=== PATIENT | female | born 1945 | race Caucasian/White ===

== ENCOUNTER 2016-09-23 20:27 | Inpatient (IN) | payer MEDICARE, OTHER ==
[~2016-09-23] VITALS: Ht 162.6 cm; Wt 84.5 kg
[~2016-09-23 20:27] MED LIST changes: -ALPR1TAB2 PO; -DULO20CA45 PO
[2016-09-23] MEDS ORDERED: DULO20CA45 PO (21:04)
[2016-09-23] MEDS ORDERED: AMLO10TA2 PO (21:04)
[2016-09-23] MEDS ORDERED: ALPR1TAB2 PO (21:04)
[2016-09-23] MEDS ORDERED: OXYcodone IR 5MG TABLET ONE (21:57)
[2016-09-23] MEDS ORDERED: OXYcodone IR 5MG TABLET PO ONE (22:00)
[2016-09-23] MEDS ORDERED: METOPROLOL TARTRATE 50 MG TABLET PO ONE (23:30)
[2016-09-23] MEDS ORDERED: SODIUM CHLORIDE FLUSH 10ML SYR IVF ONE (23:30)
[2016-09-23 23:35] LABS: HEMOGLOBIN 13.5 g/dL (11.7-16.4)
[2016-09-23 23:48] LABS: ASPARTATE AMINO TRANSFERASE 17 U/L (15-37); BLOOD UREA NITROGEN 23 mg/dL (7-18)
[2016-09-24] MEDS ORDERED: TRAZODONE 50MG TABLET PO ONE (00:30)
[2016-09-24] MEDS ORDERED: GABAPENTIN 300 MG CAPSULE PO ONE (00:30)
[2016-09-24] MEDS ORDERED: SIMVASTATIN 20 MG TABLET PO ONE (00:30)
[2016-09-24] MEDS ORDERED: METOPROLOL TARTRATE 50 MG TABLET ONE (00:46)
[2016-09-24] MEDS: SODIUM CHLORIDE 0.9% 1,000 ML IV SCH ×3 (01:36→21:47)
[2016-09-24 01:38] VITALS: BP 167/79
[2016-09-24] MEDS ORDERED: ONDANSETRON ODT 4 MG PO PRN (02:00)
[2016-09-24] MEDS ORDERED: BISACODYL 10 MG SUPP PR PRN (02:00)
[2016-09-24] MEDS: HEPARIN 5,000 UNITS/ML, 1ML SQ SCH ×3 (03:22→18:00)
[2016-09-24] MEDS: CHOLECALCIFEROL 1,000 UNIT TABLET PO SCH (04:05)
[2016-09-24] MEDS: ASPIRIN 81 MG TABLET EC PO SCH (04:05)
[2016-09-24] MEDS: OXYcodone IR 5MG TABLET PO PRN ×3 (04:06→21:52)
[2016-09-24 05:46] LABS: BLOOD UREA NITROGEN 23 mg/dL (7-18)
[2016-09-24 06:47] VITALS: BP 150/68
[2016-09-24] MEDS: INSULIN REGULAR 100 UNITS/ML, 3ML VIAL SQ-INSULIN SCH ×4 (07:47→21:00)
[2016-09-24] MEDS: FAMOTIDINE 20 MG TABLET PO SCH ×2 (10:01→21:36)
[2016-09-24] MEDS: DULOXETINE 20 MG CAPSULE.DR PO SCH (10:01)
[2016-09-24 10:02] VITALS: BP 161/96
[2016-09-24] MEDS: AMLODIPINE 5 MG TABLET PO SCH (10:02)
[2016-09-24] MEDS: DONEPEZIL 10 MG TABLET PO SCH (10:02)
[2016-09-24] MEDS: BENAZEPRIL 20 MG TABLET PO SCH (10:03)
[2016-09-24] MEDS ORDERED: CEFAZOLIN 1,000 MG ONE (10:38)
[2016-09-24] MEDS ORDERED: PROPOFOL 10 MG/ML, 20ML ONE (10:38)
[2016-09-24] MEDS ORDERED: GLYCOPYRROLATE 0.2MG/1ML ONE (10:38)
[2016-09-24] MEDS ORDERED: ONDANSETRON 2MG/ML, 2ML ONE (10:38)
[2016-09-24] MEDS ORDERED: LABETALOL 5MG/ML, 20ML IV PRN (17:30)
[2016-09-24] MEDS ORDERED: hydrALAzine 20 MG/ML, 1ML IV PRN (17:30)
[2016-09-24] MEDS ORDERED: ONDANSETRON 2MG/ML, 2ML IVPush PRN (17:30)
[2016-09-24] MEDS ORDERED: OXYcodone 5 MG/5 ML ORAL.SOL UDC PO PRN (17:30)
[2016-09-24] MEDS ORDERED: FENTANYL PF 100 MCG/2ML ONE ×2 (17:33→17:54)
[2016-09-24] MEDS: FENTANYL PF 100 MCG/2ML IV PRN ×4 (17:35→18:10)
[2016-09-24] MEDS: LABETALOL 5MG/ML, 20ML IV PRN ×2 (17:48→17:53)
[2016-09-24] MEDS ORDERED: hydrALAzine 20 MG/ML, 1ML ONE (17:52)
[2016-09-24] MEDS ORDERED: HYDROmorphone 2 MG/ML, 1ML ONE (17:54)
[2016-09-24] MEDS: HYDROmorphone 1 MG/ML, 1ML IV PRN ×4 (17:57→18:20)
[2016-09-24] MEDS ORDERED: MIDAZOLAM 1 MG/ML, 2ML ONE (18:34)
[2016-09-24] MEDS ORDERED: HALOPERIDOL 5 MG/ML ONE (18:45)
[2016-09-24] MEDS ORDERED: HALOPERIDOL 5 MG/ML IV ONE (19:00)
[2016-09-24] MEDS ORDERED: MIDAZOLAM 1 MG/ML, 2ML IV PRN (19:00)
[2016-09-24 19:05] VITALS: BP 102/53
[2016-09-24] MEDS: GABAPENTIN 300 MG CAPSULE PO SCH (21:36)
[2016-09-24] MEDS: SIMVASTATIN 20 MG TABLET PO SCH (21:37)
[2016-09-24] MEDS: METOPROLOL SUCCINATE 25 MG TAB.ER.24H PO SCH (21:37)
[2016-09-24] MEDS: TRAZODONE 50MG TABLET PO PRN (21:52)
[2016-09-24 23:26] VITALS: BP 182/101
[2016-09-25] MEDS: CEFAZOLIN PMX 2GM/100ML 100 ML IV SCH ×2 (00:58→09:00)
[2016-09-25] MEDS: HEPARIN 5,000 UNITS/ML, 1ML SQ SCH ×3 (00:59→17:56)
[2016-09-25] MEDS: OXYcodone IR 5MG TABLET PO PRN ×4 (03:08→21:05)
[2016-09-25 03:24] VITALS: BP 156/66
[2016-09-25] MEDS: ASPIRIN 81 MG TABLET EC PO SCH (06:38)
[2016-09-25] MEDS: CHOLECALCIFEROL 1,000 UNIT TABLET PO SCH (06:38)
[2016-09-25] MEDS: INSULIN REGULAR 100 UNITS/ML, 3ML VIAL SQ-INSULIN SCH ×4 (06:39→21:06)
[2016-09-25 08:05] VITALS: BP 159/78
[2016-09-25] MEDS: DULOXETINE 20 MG CAPSULE.DR PO SCH (09:42)
[2016-09-25] MEDS: DONEPEZIL 10 MG TABLET PO SCH (09:43)
[2016-09-25] MEDS: FAMOTIDINE 20 MG TABLET PO SCH ×2 (09:43→21:06)
[2016-09-25] MEDS: AMLODIPINE 5 MG TABLET PO SCH (09:44)
[2016-09-25] MEDS: BENAZEPRIL 20 MG TABLET PO SCH (09:44)
[2016-09-25 09:57] LABS: ASPARTATE AMINO TRANSFERASE 23 U/L (15-37); BLOOD UREA NITROGEN 24 mg/dL (7-18)
[2016-09-25] MEDS ORDERED: CEFAZOLIN PMX 2GM/50ML 50 ML IV SCH (10:00)
[2016-09-25 10:08] LABS: HEMOGLOBIN 11.4 g/dL (11.7-16.4)
[2016-09-25] MEDS: SODIUM CHLORIDE 0.9% 1,000 ML IV SCH ×2 (10:15→22:50)
[2016-09-25] MEDS: NYSTATIN TOPICAL POWDER 15GM TP SCH ×2 (10:36→21:06)
[2016-09-25 13:05] VITALS: BP 133/70
[2016-09-25 20:45] VITALS: BP 139/64
[2016-09-25] MEDS: SIMVASTATIN 20 MG TABLET PO SCH (21:06)
[2016-09-25] MEDS: GABAPENTIN 300 MG CAPSULE PO SCH (21:06)
[2016-09-25] MEDS: METOPROLOL SUCCINATE 25 MG TAB.ER.24H PO SCH (21:06)
[2016-09-26] MEDS: HEPARIN 5,000 UNITS/ML, 1ML SQ SCH ×4 (02:41→20:35)
[2016-09-26] MEDS: OXYcodone IR 5MG TABLET PO PRN ×2 (03:58→12:38)
[2016-09-26 04:43] VITALS: BP 144/75
[2016-09-26] MEDS: SODIUM CHLORIDE 0.9% 1,000 ML IV SCH ×2 (05:50→12:21)
[2016-09-26] MEDS: ASPIRIN 81 MG TABLET EC PO SCH (05:51)
[2016-09-26] MEDS: CHOLECALCIFEROL 1,000 UNIT TABLET PO SCH (05:51)
[2016-09-26 06:15] LABS: HEMOGLOBIN 10.3 g/dL (11.7-16.4)
[2016-09-26 06:34] LABS: BLOOD UREA NITROGEN 20 mg/dL (7-18)
[2016-09-26] MEDS: INSULIN REGULAR 100 UNITS/ML, 3ML VIAL SQ-INSULIN SCH ×2 (07:00→11:00)
[2016-09-26 07:32] VITALS: BP 170/79
[2016-09-26] MEDS: DONEPEZIL 10 MG TABLET PO SCH (07:35)
[2016-09-26] MEDS: NYSTATIN TOPICAL POWDER 15GM TP SCH ×2 (07:35→21:05)
[2016-09-26] MEDS: DULOXETINE 20 MG CAPSULE.DR PO SCH (07:35)
[2016-09-26] MEDS: FAMOTIDINE 20 MG TABLET PO SCH ×2 (07:35→20:35)
[2016-09-26] MEDS: AMLODIPINE 5 MG TABLET PO SCH (07:35)
[2016-09-26] MEDS: POLYETHYLENE GLYCOL 17 GM PACKET PO PRN (12:38)
[2016-09-26 14:47] VITALS: BP 134/73
[2016-09-26] MEDS ORDERED: PNEUMOCOCCAL 23 VACCINE IM-VACC ONE (18:30)
[2016-09-26] MEDS ORDERED: FLU VACC QS2016-17 (36MOS+)UP/PF 0.5 ML IM-VACC ONE (18:30)
[2016-09-26 19:27] VITALS: BP 162/73
[2016-09-26] MEDS: GABAPENTIN 300 MG CAPSULE PO SCH (20:35)
[2016-09-26] MEDS: METOPROLOL SUCCINATE 25 MG TAB.ER.24H PO SCH (20:36)
[2016-09-26] MEDS: SIMVASTATIN 20 MG TABLET PO SCH (20:36)
[2016-09-26] MEDS: DOCUSATE 100 MG CAPSULE PO PRN (20:40)
[2016-09-26 22:20] VITALS: BP 168/69
[2016-09-26] MEDS: TRAZODONE 50MG TABLET PO PRN (23:19)
[2016-09-27] VITALS (9 sets, daily range): BP systolic 157–184; BP diastolic 75–89
[2016-09-27] MEDS: OXYcodone IR 5MG TABLET PO PRN ×4 (01:19→20:23)
[2016-09-27] MEDS: HEPARIN 5,000 UNITS/ML, 1ML SQ SCH ×3 (04:38→20:23)
[2016-09-27 05:35] LABS: BLOOD UREA NITROGEN 20 mg/dL (7-18)
[2016-09-27 06:03] LABS: HEMOGLOBIN 11.4 g/dL (11.7-16.4)
[2016-09-27] MEDS: CHOLECALCIFEROL 1,000 UNIT TABLET PO SCH (06:17)
[2016-09-27] MEDS: ASPIRIN 81 MG TABLET EC PO SCH (06:17)
[2016-09-27] MEDS: POLYETHYLENE GLYCOL 17 GM PACKET PO PRN (06:18)
[2016-09-27] MEDS: FAMOTIDINE 20 MG TABLET PO SCH ×2 (09:09→20:23)
[2016-09-27] MEDS: AMLODIPINE 5 MG TABLET PO SCH (09:09)
[2016-09-27] MEDS: NYSTATIN TOPICAL POWDER 15GM TP SCH ×2 (09:09→20:23)
[2016-09-27] MEDS: DONEPEZIL 10 MG TABLET PO SCH (09:09)
[2016-09-27] MEDS: DULOXETINE 20 MG CAPSULE.DR PO SCH (09:09)
[2016-09-27] MEDS: DOCUSATE 100 MG CAPSULE PO PRN (09:12)
[2016-09-27] MEDS: MAGNESIUM HYDROXIDE 8%, 30ML UDC PO SCH (11:00)
[2016-09-27] MEDS ORDERED: NYST60PO TP (12:51)
[2016-09-27] MEDS ORDERED: ENOX40SY4 SQ (12:51)
[2016-09-27] MEDS: LABETALOL 5MG/ML, 20ML IV PRN (18:48)
[2016-09-27] MEDS: GABAPENTIN 300 MG CAPSULE PO SCH (20:23)
[2016-09-27] MEDS: METOPROLOL SUCCINATE 25 MG TAB.ER.24H PO SCH (20:24)
[2016-09-27] MEDS: SIMVASTATIN 20 MG TABLET PO SCH (20:24)
[2016-09-28] VITALS (9 sets, daily range): BP systolic 150–185; BP diastolic 74–99
[2016-09-28] MEDS: LABETALOL 5MG/ML, 20ML IV PRN ×3 (02:27→15:28)
[2016-09-28] MEDS: OXYcodone IR 5MG TABLET PO PRN ×5 (02:31→20:59)
[2016-09-28] MEDS: HEPARIN 5,000 UNITS/ML, 1ML SQ SCH ×3 (04:35→20:58)
[2016-09-28] MEDS: ASPIRIN 81 MG TABLET EC PO SCH (06:15)
[2016-09-28] MEDS: CHOLECALCIFEROL 1,000 UNIT TABLET PO SCH (06:15)
[2016-09-28] MEDS: DONEPEZIL 10 MG TABLET PO SCH (08:29)
[2016-09-28] MEDS: DULOXETINE 20 MG CAPSULE.DR PO SCH (08:30)
[2016-09-28] MEDS: MAGNESIUM HYDROXIDE 8%, 30ML UDC PO SCH (08:30)
[2016-09-28] MEDS: AMLODIPINE 5 MG TABLET PO SCH ×3 (08:30→20:59)
[2016-09-28] MEDS: NYSTATIN TOPICAL POWDER 15GM TP SCH ×2 (08:30→20:58)
[2016-09-28] MEDS: FAMOTIDINE 20 MG TABLET PO SCH ×2 (09:00→22:11)
[2016-09-28 09:24] LABS: HEMOGLOBIN 11.2 g/dL (11.7-16.4)
[2016-09-28 09:32] LABS: ASPARTATE AMINO TRANSFERASE 26 U/L (15-37); BLOOD UREA NITROGEN 24 mg/dL (7-18)
[2016-09-28] MEDS: SODIUM CHLORIDE 0.9% 1,000 ML IV SCH ×2 (15:27→23:57)
[2016-09-28] MEDS: GABAPENTIN 300 MG CAPSULE PO SCH (20:59)
[2016-09-28] MEDS: SIMVASTATIN 20 MG TABLET PO SCH (20:59)
[2016-09-29] VITALS (10 sets, daily range): BP systolic 148–183; BP diastolic 70–100
[2016-09-29] MEDS: OXYcodone IR 5MG TABLET PO PRN ×6 (02:00→22:41)
[2016-09-29] MEDS: LABETALOL 5MG/ML, 20ML IV PRN ×2 (02:07→20:20)
[2016-09-29] MEDS: HEPARIN 5,000 UNITS/ML, 1ML SQ SCH ×3 (04:15→20:11)
[2016-09-29 05:51] LABS: HEMOGLOBIN 11.4 g/dL (11.7-16.4)
[2016-09-29 05:56] LABS: BLOOD UREA NITROGEN 21 mg/dL (7-18)
[2016-09-29] MEDS ORDERED: METOPROLOL SUCCINATE 50 MG TAB.ER.24H PO SCH (06:00)
[2016-09-29] MEDS: CHOLECALCIFEROL 1,000 UNIT TABLET PO SCH (06:09)
[2016-09-29] MEDS: ASPIRIN 81 MG TABLET EC PO SCH (06:09)
[2016-09-29] MEDS: SODIUM CHLORIDE 0.9% 1,000 ML IV SCH ×2 (07:00→15:00)
[2016-09-29] MEDS: DONEPEZIL 10 MG TABLET PO SCH (08:19)
[2016-09-29] MEDS: DULOXETINE 20 MG CAPSULE.DR PO SCH (08:19)
[2016-09-29] MEDS: FAMOTIDINE 20 MG TABLET PO SCH ×2 (08:19→20:12)
[2016-09-29] MEDS: AMLODIPINE 5 MG TABLET PO SCH ×2 (08:19→20:12)
[2016-09-29] MEDS: MAGNESIUM HYDROXIDE 8%, 30ML UDC PO SCH (08:19)
[2016-09-29] MEDS: NYSTATIN TOPICAL POWDER 15GM TP SCH ×2 (08:20→21:36)
[2016-09-29] MEDS ORDERED: POTASSIUM CHLORIDE 20 MEQ TAB.ER.PRT PO ONE (10:30)
[2016-09-29] MEDS: METOPROLOL SUCCINATE 50 MG TAB.ER.24H PO SCH (10:48)
[2016-09-29] MEDS: GABAPENTIN 300 MG CAPSULE PO SCH ×2 (10:48→20:12)
[2016-09-29] MEDS: LISINOPRIL 10 MG TABLET PO SCH (13:42)
[2016-09-29] MEDS ORDERED: DO NOT GIVE MC ONE (14:30)
[2016-09-29] MEDS: SIMVASTATIN 20 MG TABLET PO SCH (20:11)
[2016-09-29] MEDS: QUETIAPINE 25MG TABLET PO SCH (21:35)
[2016-09-30] MEDS: OXYcodone IR 5MG TABLET PO PRN ×4 (02:39→14:44)
[2016-09-30 03:12] VITALS: BP 146/73
[2016-09-30 05:16] LABS: HEMOGLOBIN 11.6 g/dL (11.7-16.4)
[2016-09-30] MEDS: ASPIRIN 81 MG TABLET EC PO SCH (05:16)
[2016-09-30] MEDS: HEPARIN 5,000 UNITS/ML, 1ML SQ SCH ×2 (05:16→12:31)
[2016-09-30 05:23] LABS: BLOOD UREA NITROGEN 16 mg/dL (7-18)
[2016-09-30] MEDS: CHOLECALCIFEROL 1,000 UNIT TABLET PO SCH (06:38)
[2016-09-30 08:20] VITALS: BP 174/69
[2016-09-30] MEDS: DONEPEZIL 10 MG TABLET PO SCH (08:43)
[2016-09-30] MEDS: QUETIAPINE 25MG TABLET PO SCH (08:44)
[2016-09-30] MEDS: GABAPENTIN 300 MG CAPSULE PO SCH (08:44)
[2016-09-30] MEDS: MAGNESIUM HYDROXIDE 8%, 30ML UDC PO SCH (08:44)
[2016-09-30] MEDS: AMLODIPINE 5 MG TABLET PO SCH (08:44)
[2016-09-30] MEDS: FAMOTIDINE 20 MG TABLET PO SCH (08:45)
[2016-09-30] MEDS: DULOXETINE 20 MG CAPSULE.DR PO SCH (08:45)
[2016-09-30] MEDS: NYSTATIN TOPICAL POWDER 15GM TP SCH (08:45)
[2016-09-30] MEDS: METOPROLOL SUCCINATE 50 MG TAB.ER.24H PO SCH (08:45)
[2016-09-30] MEDS: LISINOPRIL 10 MG TABLET PO SCH (08:45)
[2016-09-30 11:08] VITALS: BP 158/77
[2016-09-30 12:45] VITALS: BP 148/75
[2016-09-30] MEDS ORDERED: AMLO5TAB2 PO (13:23)
[2016-09-30] MEDS ORDERED: LISI-167 PO ×2 (13:23→13:33)
[2016-09-30] MEDS ORDERED: ALPR0.25 PO (13:25)
[2016-09-30 14:24] VITALS: BP 179/89
[2016-09-30] MEDS: LABETALOL 5MG/ML, 20ML IV PRN (14:30)
[2016-09-30 14:44] VITALS: BP 159/80
== END 2016-09-30 15:00 | DRG 480 ==
LOC: ED 23:36 → EDIP 09-24 00:16 → 4NOR 09-24 01:08
PROVIDERS: ADMIT Internal Medicine; ATTEND Internal Medicine
PROC: 0QS704Z Reposition Left Upper Femur with Internal Fixation Device, Open Approach (ICD-10-PCS; principal; 2016-09-25)
DX: S72.142A Displaced intertrochanteric fracture of left femur, initial encounter for closed fracture (principal); N17.0 Acute kidney failure with tubular necrosis; I50.32 Chronic diastolic (congestive) heart failure; E87.1 Hypo-osmolality and hyponatremia; E44.1 Mild protein-calorie malnutrition; F05 Delirium due to known physiological condition; F03.90 Unspecified dementia, unspecified severity, without behavioral disturbance, psychotic disturbance, mood disturbance, and anxiety; E78.5 Hyperlipidemia, unspecified; I25.10 Atherosclerotic heart disease of native coronary artery without angina pectoris; M54.9 Dorsalgia, unspecified; G89.29 Other chronic pain; I11.0 Hypertensive heart disease with heart failure; Z96.651 Presence of right artificial knee joint; G62.9 Polyneuropathy, unspecified; E11.65 Type 2 diabetes mellitus with hyperglycemia; Z79.899 Other long term (current) drug therapy; Z86.73 Personal history of transient ischemic attack (TIA), and cerebral infarction without residual deficits; Z95.1 Presence of aortocoronary bypass graft; Z95.5 Presence of coronary angioplasty implant and graft; Z90.710 Acquired absence of both cervix and uterus; Z90.49 Acquired absence of other specified parts of digestive tract; Z68.32 Body mass index [BMI] 32.0-32.9, adult; Z88.0 Allergy status to penicillin
CPT/HCPCS: 36415; 71010; 76000; 80048; 80053; 80173; 82040; 82140; 82607; 82746; 82962; 83735; 84439; 84443; 85025; 85651; 86140; 90686; 90732; 99285; C1713; J0690; J1170; J1644; J2250; J2405; J2704; J3010; J3490; C1769; J0360; J1630; J7030

== ENCOUNTER → 2016-09-23 | Outpatient (CLI) | payer MEDICARE, OTHER ==
[~2016-09-23] MED LIST: ALPR0.25 PO; ALPR1TAB2 PO; AMLO10TA2 PO; AMLO5TAB2 PO; ASPI-496 PO; ASPI-621 PO; BENA1TAB10 PO; BENA20TA2 PO; CHOL20002 PO; CLON-364 PO; CLOP75TA PO; DOCU-30 PO; DONE10TA7 PO; DULO20CA45 PO; FAMO-79 PO; FLUO20TA25 PO; GABA300C10 PO; GABA600T2 PO; LUBI24CA5 PO; MAGN100T6 PO; MELA3TAB15 PO; METF500T4 PO; METF850T2 PO; METO25TA2 PO; ONDA4TAB13 SL; ONDANSETRON PO; OXYC15TA PO; OXYC1TAB9 PO; POLY17PO5 PO; PRAS10TA4 PO; RANI150C PO; SENN1TAB9 PO; SIMV20TA3 PO; TICA90TA PO; TOLT4CAP PO; TRAZ50TA18 PO; VENL37.511 PO; VITAMIN D3 PO; ZEGERID PO; ZINC50TA28 PO
== END | disposition home or self-care (01) ==
LOC: RAD 08:51
PROVIDERS: ATTEND Nurse Practitioner
DX: M25.552 Pain in left hip (principal); M54.5 Low back pain

== ENCOUNTER 2017-08-22 00:43 | Inpatient (IN) | payer MEDICARE, OTHER ==
[~2017-08-22] VITALS: Ht 165.1 cm; Wt 86.0 kg
[~2017-08-22 00:43] MED LIST changes: +ALPR1TAB2 PO; +DOCU-131 PO; -DOCU-30 PO; +DULO20CA45 PO; +ENOX40SY4 SQ; +LISI-167 PO; -LUBI24CA5 PO; +LUBI24CA7 PO; +NYST60PO TP
[2017-08-22] MEDS ORDERED: SODIUM CHLORIDE FLUSH 10ML SYR IVF ONE (01:00)
[2017-08-22] MEDS ORDERED: NITROGLYCERIN OINT 2%, 1GM TP ONE ×2 (01:00→01:14)
[2017-08-22 01:09] LABS: BASOPHILS # (AUTO) 0.04 x10^3/uL (0-0.1); BASOPHILS % (AUTO) 1 % (0-1); EOSINOPHILS # (AUTO) 0.15 x10^3/uL (0-0.4); EOSINOPHILS % (AUTO) 2 % (1-7); LYMPHOCYTES # (AUTO) 1.63 x10^3/uL (1-3.4); LYMPHOCYTES % (AUTO) 22 % (22-44); MD NO; MEAN CORPUSCULAR HEMOGLOBIN 31.3 pg (27.0-34.8); MEAN CORPUSCULAR HGB CONC 33.2 g/dL (32.4-35.8); MEAN PLATELET VOLUME 8.2 fL (7.4-10.4); MONOCYTES # (AUTO) 0.48 x10^3/uL (0.2-0.8); MONOCYTES % (AUTO) 7 % (2-9); NEUTROPHILS # (AUTO) 5.07 x10^3/uL (1.8-6.8); NEUTROPHILS % (AUTO) 69 % (42-75); PLATELET COUNT 187 x10^3/uL (130-400); RED BLOOD COUNT 4.26 x10^6/uL (3.82-5.3); RED CELL DISTRIBUTION WIDTH 13.4 % (9.6-15.2)
[2017-08-22 01:16] LABS: INTERNATIONAL NORMALIZED RATIO 1.04 (0.93-1.1); PROTHROMBIN TIME 10.7 Seconds (9.6-11.5)
[2017-08-22 01:18] LABS: ALBUMIN 3.7 g/dL (3.4-5.0); ANION GAP 10 mmol/L (5-15); CALCIUM 8.8 mg/dL (8.5-10.1); CHLORIDE 108 mmol/L (98-107); CREATININE 1.45 mg/dL (0.55-1.02)
[2017-08-22 01:22] LABS: TROPONIN I < 0.015 ng/mL (0.000-0.045)
[2017-08-22] MEDS ORDERED: D5%-0.45% NACL 1,000 ML IV ONE (01:50)
[2017-08-22] MEDS ORDERED: OXYcodone/APAP 5/325MG TABLET PO ONE (02:00)
[2017-08-22] MEDS ORDERED: SODIUM CHLORIDE FLUSH 10ML SYR IVF PRN (02:00)
[2017-08-22] MEDS ORDERED: OXYC10TA6 PO (02:02)
[2017-08-22] MEDS ORDERED: OXYcodone/APAP 5/325MG TABLET ONE (02:10)
[2017-08-22 03:10] VITALS: BP 173/81
[2017-08-22] MEDS ORDERED: SODIUM CHLORIDE 0.9% 1,000 ML IV SCH (05:52)
[2017-08-22] MEDS ORDERED: ONDANSETRON 2MG/ML, 2ML IVPush PRN (06:00)
[2017-08-22] MEDS ORDERED: hydrALAzine 20 MG/ML, 1ML IV PRN (06:00)
[2017-08-22] MEDS ORDERED: morphine SULFATE 10 MG/ML, 1ML IVPush PRN (06:00)
[2017-08-22] MEDS ORDERED: ASPIRIN 81 MG TABLET EC PO SCH (06:00)
[2017-08-22] MEDS ORDERED: ACETAMINOPHEN 325 MG TABLET PO PRN (06:00)
[2017-08-22] MEDS ORDERED: ENALAPRILAT 1.25 MG/ML, 2ML IV PRN ×2 (06:00→12:00)
[2017-08-22] MEDS ORDERED: POLYETHYLENE GLYCOL 17 GM PACKET PO PRN (06:00)
[2017-08-22] MEDS ORDERED: DOCUSATE 100 MG CAPSULE PO PRN (06:00)
[2017-08-22] MEDS: ENOXAPARIN 40 MG/0.4 ML SQ SCH (06:21)
[2017-08-22] MEDS ORDERED: ASPIRIN MC SCH (06:30)
[2017-08-22 07:34] LABS: CHOLESTEROL, TOTAL 210 mg/dL (140-239)
[2017-08-22 07:37] LABS: CHOL/HDL RATIO 5.7; HDL CHOL % 18 % (28-40); HDL CHOLESTEROL (DIRECT) 37 mg/dL (40-60); LDL CHOLESTEROL,CALCULATED 141 mg/dL (54-169); LDL/HDL RATIO 3.8 (0.5-3.0); TRIGLYCERIDES 162 mg/dL (50-200); TROPONIN I < 0.015 ng/mL (0.000-0.045); VLDL CHOLESTEROL 32 mg/dL (0-25)
[2017-08-22] MEDS: FAMOTIDINE 20 MG TABLET PO SCH ×2 (08:14→21:00)
[2017-08-22] MEDS: DULOXETINE 20 MG CAPSULE.DR PO SCH (08:14)
[2017-08-22] MEDS: OXYcodone IR 5MG TABLET PO PRN ×2 (08:15→16:16)
[2017-08-22] MEDS: PRASUGREL 10 MG TABLET PO SCH (08:15)
[2017-08-22] MEDS: DONEPEZIL 10 MG TABLET PO SCH (08:15)
[2017-08-22] MEDS: ASPIRIN 325 MG TABLET EC PO SCH (08:15)
[2017-08-22] MEDS: SENNA/DOCUSATE TABLET PO SCH (08:18)
[2017-08-22] MEDS: INSULIN LISPRO 100 UNITS/ML, PEN SQ-INSULIN SCH ×4 (08:18→21:00)
[2017-08-22] MEDS ORDERED: AMLODIPINE 5 MG TABLET PO SCH (09:00)
[2017-08-22] MEDS ORDERED: REGADENOSON 0.4 MG/5 ML SYRINGE ONE (11:25)
[2017-08-22 11:48] VITALS: BP 177/80
[2017-08-22] MEDS: HYDROcodone/APAP 5/325 TABLET PO PRN (11:53)
[2017-08-22 14:20] VITALS: BP 185/93
[2017-08-22 19:09] VITALS: BP 142/77
[2017-08-22] MEDS ORDERED: SIMVASTATIN 20 MG TABLET PO SCH (21:00)
[2017-08-22] MEDS ORDERED: GABAPENTIN 300 MG CAPSULE PO SCH (21:00)
[2017-08-22] MEDS ORDERED: METOPROLOL SUCCINATE 25 MG TAB.ER.24H PO SCH (21:00)
[2017-08-23] MEDS: HYDROcodone/APAP 5/325 TABLET PO PRN (00:47)
[2017-08-23] MEDS: OXYcodone IR 5MG TABLET PO PRN ×4 (02:16→14:04)
[2017-08-23] MEDS: ENOXAPARIN 40 MG/0.4 ML SQ SCH (06:18)
[2017-08-23] MEDS: ASPIRIN 325 MG TABLET EC PO SCH (06:18)
[2017-08-23 08:08] VITALS: BP 166/76
[2017-08-23] MEDS: INSULIN LISPRO 100 UNITS/ML, PEN SQ-INSULIN SCH ×2 (08:25→11:53)
[2017-08-23] MEDS: PRASUGREL 10 MG TABLET PO SCH (08:30)
[2017-08-23] MEDS: FAMOTIDINE 20 MG TABLET PO SCH (08:30)
[2017-08-23] MEDS: DULOXETINE 20 MG CAPSULE.DR PO SCH (08:30)
[2017-08-23] MEDS: SENNA/DOCUSATE TABLET PO SCH (08:30)
[2017-08-23] MEDS: DONEPEZIL 10 MG TABLET PO SCH (08:30)
[2017-08-23] MEDS ORDERED: AMLODIPINE 5 MG TABLET PO SCH (09:00)
[2017-08-23] MEDS ORDERED: FLU VACC QS2017-18 (36MOS+) UP/PF 0.5 ML IM-VACC ONE (13:30)
== END 2017-08-23 15:13 | disposition home health service (06) | DRG 304 ==
LOC: ED 00:49 → EDIP 02:01 → 5SO 03:02
PROVIDERS: ADMIT Family Medicine; ATTEND Family Medicine
DX: I16.0 Hypertensive urgency (principal); N17.0 Acute kidney failure with tubular necrosis; R07.9 Chest pain, unspecified; I25.10 Atherosclerotic heart disease of native coronary artery without angina pectoris; F41.1 Generalized anxiety disorder; E11.22 Type 2 diabetes mellitus with diabetic chronic kidney disease; E78.00 Pure hypercholesterolemia, unspecified; E78.5 Hyperlipidemia, unspecified; F03.90 Unspecified dementia, unspecified severity, without behavioral disturbance, psychotic disturbance, mood disturbance, and anxiety; I25.2 Old myocardial infarction; I12.9 Hypertensive chronic kidney disease with stage 1 through stage 4 chronic kidney disease, or unspecified chronic kidney disease; I48.91 Unspecified atrial fibrillation; K21.9 Gastro-esophageal reflux disease without esophagitis; N18.9 Chronic kidney disease, unspecified; Z86.73 Personal history of transient ischemic attack (TIA), and cerebral infarction without residual deficits; Z95.5 Presence of coronary angioplasty implant and graft
CPT/HCPCS: 36415; 70450; 71045; 78452; 80048; 80061; 82040; 82962; 84484; 85025; 85610; 85730; 90686; 93005; 93017; 93306; 99285; J1650; J2405; J2785; A9502; C9898; J0360; J1815; J7030

== ENCOUNTER 2020-09-19 09:17 | Inpatient (IN) | payer OTHER ==
[~2020-09-19] VITALS: Ht 165.1 cm; Wt 92.0 kg
[~2020-09-19 09:17] MED LIST changes: +AMLO-150 PO; +AMLO-211 PO; -AMLO10TA2 PO; -AMLO5TAB2 PO; -ASPI-621 PO; +ASPI81TA45 PO; -BENA20TA2 PO; +BENA20TA54 PO; +CITA10TA4 PO; +CITA20TA6 PO; +DOXE25CA PO; +DOXE75CA PO; -GABA600T2 PO; +GABA600T7 PO; +HYDR-2995 PO; +LUBI8CAP4 PO; +MAGN30OR PO; +METF500T17 PO; -METF500T4 PO; +METF850T10 PO; -METF850T2 PO; +OXYC-380 PO; +OXYC10TA6 PO; -OXYC15TA PO; +OXYC15TA3 PO; +OXYC1TAB18 PO; -OXYC1TAB9 PO; +QUET50TA PO; +SENN-178 PO; -SENN1TAB9 PO; +SIMV20TA19 PO; -SIMV20TA3 PO; -TRAZ50TA18 PO; +TRAZ50TA66 PO; -ZINC50TA28 PO; +ZINC50TA44 PO
[2020-09-19] MEDS ORDERED: SCOPOLAMINE 1MG PATCH TD SCH (13:30)
[2020-09-19] MEDS ORDERED: PROMETHAZINE 25 MG/ML, 1ML IM PRN (13:30)
[2020-09-19] MEDS ORDERED: ONDANSETRON 2MG/ML, 2ML IVPush PRN (13:30)
[2020-09-19] MEDS ORDERED: MORPHINE SULFATE 4 MG/ML, 1ML IVPush PRN ×3 (13:30)
[2020-09-19] MEDS ORDERED: HALOPERIDOL 5 MG/ML IV SCH (13:30)
[2020-09-19] MEDS: LORazepam 2 MG/ML, 1ML IVPush PRN ×3 (14:15→18:25)
[2020-09-22] MEDS: LORazepam 2 MG/ML, 1ML IVPush PRN (06:20)
[2020-09-22] MEDS: SODIUM CHLORIDE 0.9% 1,000 ML IV SCH ×2 (06:25→06:27)
[2020-09-22] MEDS ORDERED: PLEASE ENTER HEIGHT AND WEIGHT MC SCH (12:30)
[2020-09-22] MEDS: LORazepam 2 MG/ML, 1ML IVPush SCH ×2 (12:46→18:43)
[2020-09-22] MEDS ORDERED: SCOPOLAMINE PATCH, 1.5MG PATCH.TD72 TD SCH (15:30)
[2020-09-22] MEDS: ATROPINE OPHTH SOLN 1%, 5ML BC PRN ×2 (20:22→23:40)
[2020-09-23] MEDS: LORazepam 2 MG/ML, 1ML IVPush SCH ×4 (00:30→18:35)
[2020-09-23] MEDS: ATROPINE OPHTH SOLN 1%, 5ML BC PRN ×6 (03:18→20:08)
[2020-09-24] MEDS: ATROPINE OPHTH SOLN 1%, 5ML BC PRN ×6 (00:12→21:25)
[2020-09-24] MEDS: LORazepam 2 MG/ML, 1ML IVPush SCH ×6 (00:12→22:43)
[2020-09-24] MEDS: LORazepam 2 MG/ML, 1ML IVPush PRN ×2 (02:14→04:23)
[2020-09-24] MEDS ORDERED: LORazepam 2 MG/ML, 1ML IVPush PRN (07:30)
[2020-09-25] MEDS: LORazepam 2 MG/ML, 1ML IVPush SCH (02:42)
== END 2020-09-25 04:12 | disposition expired | DRG 871 ==
LOC: 4EST 13:11 → 4NW 22:08
PROVIDERS: ADMIT Internal Medicine; ATTEND Internal Medicine
DX: A41.9 Sepsis, unspecified organism (principal); I50.33 Acute on chronic diastolic (congestive) heart failure; N17.0 Acute kidney failure with tubular necrosis; G93.41 Metabolic encephalopathy; J96.01 Acute respiratory failure with hypoxia; F02.81 Dementia in other diseases classified elsewhere, unspecified severity, with behavioral disturbance; N39.0 Urinary tract infection, site not specified; L02.413 Cutaneous abscess of right upper limb; G30.9 Alzheimer's disease, unspecified; Z88.0 Allergy status to penicillin; Z83.3 Family history of diabetes mellitus; Z82.49 Family history of ischemic heart disease and other diseases of the circulatory system; I11.0 Hypertensive heart disease with heart failure; Z78.1 Physical restraint status; E87.6 Hypokalemia; R33.9 Retention of urine, unspecified; Z66 Do not resuscitate
CPT/HCPCS: G0378; J2270; J2060; J7030